=== PATIENT | male | born 1955 | race Caucasian/White ===

== ENCOUNTER → 2017-02-04 | Outpatient (CLI) | payer BC ==
--- NOTE | ~2017-02-04 | PFT ---
[id number] [facility] [address] [place], [place] [address] [id number] O MR#: [id number] NAME: ABDELRAHMAN HANSEN III ROOM: SEX: M STUDY DATE/TIME: 02/06/2017 : 1955 AGE: 61 STUDY DESCRIPTION: Attending Physician: Ricardo Pedroza M.D. Referring Physician: Ricardo Pedroza M.D. Primary Care Physician: Daisy Mackenzie M.D. PULMONARY DIAGNOSTIC REPORT EXAM Pulmonary function test. FINDINGS Spirometry is essentially normal. There is a significant response to bronchodilators of 13% yielding a FEV1 of 3.71 L, 102% of predicted. Flow volume loop fairly normal after bronchodilators. Lung volumes are unremarkable. Diffusion capacity is normal. Changes suggest the possibility of asthma. Dictated by... Ren Watts M.D. ANT/marina TD: 02/06/2017 09:56 JOB #: [id number] PULMONARY DIAGNOSTIC REPORT Page 1 of 1
== END | disposition home or self-care (01) ==
LOC: CRC 09:38
DX: Z77.090 Contact with and (suspected) exposure to asbestos (principal)
CPT/HCPCS: 94060; 94726; 94729